=== PATIENT | male | born 1985 | race Hispanic/Latino ===

== ENCOUNTER 2020-02-19 07:33 | Inpatient (IN) | payer OTHER ==
[~2020-02-19] VITALS: Ht 177.8 cm; Wt 100.0 kg
[2020-02-19] MEDS ORDERED: MORPHINE 4 MG/ML 1ML VIAL/SYRINGE (J2270) IV ONE (08:15)
[2020-02-19] MEDS ORDERED: NS 1,000 ML IV ONE (08:15)
[2020-02-19] MEDS ORDERED: ONDANSETRON 4MG/2ML VIAL IV ONE (08:15)
[2020-02-19 08:35] LABS: BASO # 0.1 10^3/uL (0.0-0.2); BASO % 0.3 % (0.0-1.0); EOS % 0.1 % (0.0-3.0); HEMATOCRIT 41.2 % (42.0-52.0); HEMOGLOBIN 14.5 g/dl (13.5-17.5); LYMPH # 1.4 10^3/uL (1.5-5.0); LYMPH % 7.7 % (24.0-44.0); MEAN CORPUSCULAR HEMOGLOBIN 28.3 pg (27.0-33.0); MEAN CORPUSCULAR HGB CONC 35.2 g/dl (32.0-36.5); MEAN CORPUSCULAR VOLUME 80.3 fl (80.0-96.0); MONO # 0.9 10^3/uL (0.0-0.8); NEUTROPHILS # 15.3 10^3/uL (1.5-8.5); NEUTROPHILS % 86.4 % (36.0-66.0); PLATELET COUNT, AUTOMATED 241 10^3/uL (150-450); RED BLOOD COUNT 5.13 10^6/uL (4.30-6.10); WHITE BLOOD COUNT 17.7 10^3/uL (4.0-10.0)
[2020-02-19] MEDS ORDERED: ISOVUE-370 76% 100ML VIAL As Ordered ONE (08:41)
--- NOTE | 2020-02-19 09:30 | REP ---
INDICATION: rlq pain, r/o appy. COMPARISON: None. TECHNIQUE: Helical scanning was acquired and 4 mm axial images are re-formatted. Coronal and sagittal MPR images were generated and reviewed. The contrast enhancement dose is 100 mL of intravenous Isovue 370. FINDINGS: Digital preliminary coffee break attendant radiograph is noncontributory. The lung bases are clear on axial CT images. There is an accessory splenule in the left upper quadrant. There is also a small Bochdalek's hernia in the diaphragm transmiting a small quantity of abdominal fat into the left posterior hemithorax at the costovertebral angle. The liver is normal in size homogeneous in texture. The spleen is slightly prominent measuring 14 cm. There is at least 1 granulomatous calcification in the spleen. No mass lesion is observed. Normal adrenal glands are noted. There is no abnormality in the gallbladder or the pancreas. The kidneys enhance symmetrically and are morphologically intact. There are several normal-sized periaortic lymph nodes noted in the retroperitoneum. The largest of these 9 mm in short axis dimension by 17 x 30 mm in long axis dimension. These may be reactive lymph nodes. Scanning of the pelvis demonstrates a normal noninflamed air-containing appendix. There is however evidence of diverticulitis in the sigmoid colon with moderate amount of mural thickening and pericolonic fat streaking in the central pelvis above the dome of the urinary bladder. There is a intramural low-density fluid collection consistent with abscess measuring 1.7 cm in greatest diameter. No drainable abscess is seen. A 2nd intramural collection is seen measuring 1.3 cm. There is mild diverticulosis. No free air or remote abscess is seen. No abdominal wall defect is observed. Urinary bladder is intact. Seminal vesicles and prostate are unremarkable. Bone window settings show no bony destructive lesion. IMPRESSION: Acute diverticulitis sigmoid colon in the central pelvis with intramural fluid collections consistent with very small abscess formation. No free air or remote abscess seen. No drainable abscess noted. Normal appendix. Mild reactive retroperitoneal lymphadenopathy. Borderline enlarged spleen. Bochdalek's hernia noted incidentally transmiting abdominal fat into the left posterioromedial hemithorax. <Electronically signed by Joseph Becerra > 02/19/20 0952
[2020-02-19] MEDS ORDERED: PIPERACILLIN/TAZOBACTAM SOD 3.375 GM in D5W MINI-BAG PLUS 50 ML IV ONE (10:00)
[2020-02-19] MEDS ORDERED: ACETAMINOPHEN TAB 650MG DOSE (2X325MG) PO PRN ×2 (11:30→11:45)
[2020-02-19] MEDS ORDERED: lisinopriL 20 MG TAB PO ONE (11:45)
--- NOTE | 2020-02-19 11:53 | HPEPDOC ---
General Date of Admission 02/19/20 Date of Service: Feb 19, 2020 Chief Complaint The patient is a 34-year-old male admitted with a reason for visit of Abdominal Pain. Source: Patient Exam Limitations: No limitations Timing/Duration: Day(s) Severity: Moderate Associated Symptoms: Nausea History of Present Illness Patient is 34 years old male with past medical history of hypertension presented hospital with lower abdominal pain. Patient stated that for past 48 hours he has been having increased left lower quadrant and right lower quadrant abdominal pain with increased intensity, 7 out of 10. Also patient stated that he lost appetite and he has been having nausea. In ER patient was found to have leukocytosis of 17, hemoglobin 14.5, CT abdomen pelvis showed Acute diverticulitis sigmoid colon in the central pelvis with intramural fluid collections consistent with very small abscess formation. No free air or remote abscess seen. No drainable abscess noted. Surgical team was contacted by ER physician, Dr. Carey recommended antibiotic therapy for now. Home Medications No Active Prescriptions or Reported Meds Allergies Coded Allergies: No Known Allergies (Unverified , 02/19/20) Past Medical History Medical History Hypertension Family History Mother has diabetes and hypertension Social History * Smoker: chew Alcohol: occationally Drugs: denies A-FIB/CHADSVASC A-FIB History Current/History of A-Fib/PAF?: No Current PO Anticoag Therapy: No Review of Systems Constitutional: Denies: Chills, Fever Eyes: Denies: Pain ENT: Denies: Head Aches Skin: Denies: Rash, Lesions Pulmonary: Denies: Dyspnea, Cough Cardiovascular: Denies: Chest Pain Gastrointestinal: Reports: Nausea, Abdominal Pain Genitourinary: Denies: Dysuria, Frequency Hematologic: Denies: Bruising Musculoskeletal: Denies: Neck Pain Neurological: Denies: Weakness Psych: Reports: Mood Normal Physical Examination General Exam: Positive: Alert, Cooperative Eye Exam: Positive: PERRLA ENT Exam: Positive: Atraumatic Neck Exam: Positive: Supple; Negative: JVD Chest Exam: Positive: Clear to auscultation Heart Exam: Positive: Rate Normal Telemetry: Negative: No significant arrhythmia Abdomen Exam: Positive: BS Hypoactive, Soft, Tenderness Extremity Exam: Negative: Clubbing, Cyanosis Skin Exam: Positive: Nl turgor and temperature Neuro Exam: Positive: Normal Gait, Strength at 5/5 X4 ext Psych Exam: Positive: Mental status NL Vital Signs Vital Signs Date Time Temp Pulse Resp B/P (MAP) Pulse Ox O2 Delivery O2 Flow Rate FiO2 02/19/20 10:25 98.0 83 18 143/90 (107) 98 Room Air Laboratory Data Labs 24H Laboratory Tests 2 02/19/20 08:06: Immature Granulocyte % (Auto) 0.5, Neutrophils (%) (Auto) 86.4H, Lymphocytes (%) (Auto) 7.7L, Monocytes (%) (Auto) 5.0, Eosinophils (%) (Auto) 0.1, Basophils (%) (Auto) 0.3, Neutrophils # (Auto) 15.3H, Lymphocytes # (Auto) 1.4L, Monocytes # (Auto) 0.9H, Eosinophils # (Auto) 0.0, Basophils # (Auto) 0.1, Nucleated Red Blood Cells % (auto) 0.0 02/19/20 08:24: POC Glucose (Misc Panel) 119H, POC Sodium (Misc Panel) 137, POC Potassium (Misc Panel) 3.9, POC Chloride (Misc Panel) 101, POC Total CO2 (Misc Panel) 27.0, POC Blood Urea Nitrogen (Misc Panel 11, POC Ionized Calcium (Misc Panel) 4.9, POC Creatinine (Misc Panel) 0.9, POC Hematocrit (Misc Panel) 41.0 02/19/20 09:53: Coronavirus (COVID-19)(PCR) NEGATIVE CBC/BMP Laboratory Tests 02/19/20 08:06 Assessment/Plan Patient is 34 years old male with past medical history of hypertension presented hospital with lower abdominal pain. Patient stated that for past 48 hours he has been having increased left lower quadrant and right lower quadrant abdominal pain with increased intensity, 7 out of 10. Also patient stated that he lost appetite and he has been having nausea. In ER patient was found to have leukocytosis of 17, hemoglobin 14.5, CT abdomen pelvis showed Acute diverticulitis sigmoid colon in the central pelvis with intramural fluid collections consistent with very small abscess formation. No free air or remote abscess seen. No drainable abscess noted. Surgical team was contacted by ER physician, Dr. Carey recommended antibiotic therapy for now. Problems (1) Abscess of sigmoid colon due to diverticulitis Status: Acute Problem Text: CT showed intramural low-density fluid collection consistent with abscess measuring 1.7 cm in greatest diameter. No drainable abscess is seen. A 2nd intramural collection is seen measuring 1.3 Zosyn IV Appreciate agree with surgical consult (2) Sigmoid diverticulitis Status: Acute Problem Text: Nothing by mouth for now Pain management (3) Hypertension Status: Chronic Problem Text: Lisinopril by mouth 20 mg Plan / VTE VTE Prophylaxis Ordered?: Yes CHERI OTERO DO Feb 19, 2020 11:53
[2020-02-19 12:02] VITALS: BP 162/103
[2020-02-19] MEDS: HEPARIN SOD (PORCINE) 5000UNITS/ML 1ML VIAL/SYRINGE SC SCH ×2 (12:24→21:28)
[2020-02-19] MEDS: NS 1,000 ML IV SCH ×2 (12:24→20:04)
[2020-02-19] MEDS: KETOROLAC 30 MG/ML 1ML VIAL IV PRN (12:24)
[2020-02-19 16:00] VITALS: BP 144/88
[2020-02-19] MEDS: PIPERACILLIN/TAZOBACTAM SOD 3.375 GM in D5W MINI-BAG PLUS 50 ML IV SCH ×2 (17:49→21:28)
[2020-02-19 22:00] VITALS: BP 127/73
[2020-02-20] MEDS: PIPERACILLIN/TAZOBACTAM SOD 3.375 GM in D5W MINI-BAG PLUS 50 ML IV SCH ×4 (04:10→21:17)
[2020-02-20] MEDS: NS 1,000 ML IV SCH ×3 (04:11→20:37)
[2020-02-20 06:00] VITALS: BP 124/73
[2020-02-20 06:08] LABS: HEMATOCRIT 35.5 % (42.0-52.0); MEAN CORPUSCULAR HEMOGLOBIN 28.6 pg (27.0-33.0); MEAN CORPUSCULAR HGB CONC 34.9 g/dl (32.0-36.5); MEAN CORPUSCULAR VOLUME 81.8 fl (80.0-96.0); PLATELET COUNT, AUTOMATED 209 10^3/uL (150-450); RED BLOOD COUNT 4.34 10^6/uL (4.30-6.10); WHITE BLOOD COUNT 9.1 10^3/uL (4.0-10.0)
[2020-02-20 06:14] LABS: HEMOGLOBIN 12.4 g/dl (13.5-17.5)
[2020-02-20] MEDS: KETOROLAC 30 MG/ML 1ML VIAL IV PRN (06:18)
[2020-02-20 06:55] LABS: ALBUMIN 2.6 GM/DL (3.2-5.2); ALT/SGPT 31 U/L (12-78); BILIRUBIN,TOTAL 0.8 MG/DL (0.2-1.0); BLOOD UREA NITROGEN 13 MG/DL (7-18); CALCIUM LEVEL 8.7 MG/DL (8.5-10.1); CARBON DIOXIDE LEVEL 27 MEQ/L (21-32); CHLORIDE LEVEL 108 MEQ/L (98-107); CREATININE FOR GFR 0.97 MG/DL (0.70-1.30); GLOMERULAR FILTRATION RATE > 60.0 (>60); GLUCOSE, FASTING 90 MG/DL (70-100); MAGNESIUM LEVEL 2.1 MG/DL (1.8-2.4); POTASSIUM SERUM 3.4 MEQ/L (3.5-5.1); SODIUM LEVEL 139 MEQ/L (136-145); TOTAL PROTEIN 6.1 GM/DL (6.4-8.2)
[2020-02-20] MEDS: HEPARIN SOD (PORCINE) 5000UNITS/ML 1ML VIAL/SYRINGE SC SCH ×2 (09:10→21:18)
[2020-02-20] MEDS: lisinopriL 20 MG TAB PO SCH (09:10)
--- NOTE | 2020-02-20 11:58 | IPNPDOC ---
Text Note Date of Service The patient was seen on 02/20/20. NOTE Subjective: No any acute events overnight. Patient stated that his abdominal pain subsided Objective: GENERAL APPEARANCE: NAD HEENT: no scleral icterus, no JVD, EOMI CARDIOVASCULAR: S1S2 LUNGS: CTA ABDOMEN: soft & not tender w palpitation MUSCULOSKELETAL: no cyanosis, no swelling INTEGUMENT: no generalized palor NEUROLOGICAL: cranial nerve function from 2-12 intact intact, follows commands, speech not dysarthric Assessment/Plan Patient is 34 years old male with past medical history of hypertension presented hospital with lower abdominal pain. Patient stated that for past 48 hours he has been having increased left lower quadrant and right lower quadrant abdominal pain with increased intensity, 7 out of 10. Also patient stated that he lost appetite and he has been having nausea. In ER patient was found to have leukocytosis of 17, hemoglobin 14.5, CT abdomen pelvis showed Acute diverticulitis sigmoid colon in the central pelvis with intramural fluid c ollections consistent with very small abscess formation. No free air or remote abscess seen. No drainable abscess noted. Surgical team was contacted by ER physician, Dr. Morfin recommended antibiotic therapy for now. Problems (1) Abscess of sigmoid colon due to diverticulitis CT showed intramural low-density fluid collection consistent with abscess measuring 1.7 cm in greatest diameter. No drainable abscess is seen. A 2nd intramural collection is seen measuring 1.3 Zosyn IV (2) Sigmoid diverticulitis Nothing by mouth for now Pain management Patient will need colonoscopy in 4-6 weeks (3) Hypertension Blood pressure under control Lisinopril by mouth 20 mg VS,Fishbone, I+O VS, Fishbone, I+O Laboratory Tests 02/20/20 05:35 Vital Signs Date Time Temp Pulse Resp B/P (MAP) Pulse Ox O2 Delivery O2 Flow Rate FiO2 02/20/20 09:10 124/73 02/20/20 06:00 97.9 79 20 95 Room Air I&O- Last 24 Hours up to 6 AM 02/20/20 06:00 Intake Total 1600 ml Output Total 450 ml Balance 1150 ml CHERI OTERO DO Feb 20, 2020 11:58
[2020-02-20 13:09] LABS: BLOOD UREA NITROGEN 13 MG/DL (7-18); CALCIUM LEVEL 8.3 MG/DL (8.5-10.1); CARBON DIOXIDE LEVEL 27 MEQ/L (21-32); CHLORIDE LEVEL 109 MEQ/L (98-107); GLOMERULAR FILTRATION RATE > 60.0 (>60); GLUCOSE, FASTING 82 MG/DL (70-100); POTASSIUM SERUM 3.7 MEQ/L (3.5-5.1); SODIUM LEVEL 142 MEQ/L (136-145)
[2020-02-20 14:00] VITALS: BP 143/91
--- NOTE | 2020-02-20 14:24 | CR ---
DATE OF CONSULTATION: 02/20/2020 REASON FOR CONSULTATION: Diverticulitis. HISTORY OF PRESENT ILLNESS: The patient is a 34-year-old male who presented to the emergency room with lower abdominal pain in the right lower quadrant. He said this pain started on Wednesday and has been getting progressively worse throughout the week. He has had similar symptoms like this about a month ago that went away on its own. He attributed it to irritable bowel syndrome (IBS) and same thing this time. He thought he might have been a little bit constipated; but when the pain did not improve, he came to the emergency room. He had a white count of 17. He also had a CT scan done with concern for possible appendicitis that did show acute diverticulitis of the sigmoid colon with possible small abscesses. No signs of any free air or remote abscesses were identified. I was called from the emergency room and recommended admission with IV fluids and antibiotics. He was admitted overnight by the medical team. This morning, he feels much improved. He denies any fevers or chills. The abdominal pain is better. No problems with urination or bowel movements. No blood in his stool. No prior colonoscopy, no family history of colon diseases, and he has never had any abdominal surgeries. PAST MEDICAL HISTORY: Hypertension. PAST SURGICAL HISTORY: Negative. ALLERGIES: None. HOME MEDICATIONS: None. SOCIAL HISTORY: He denies drug, alcohol, or tobacco abuse. FAMILY HISTORY: Non-contributory. REVIEW OF SYSTEMS: Pertinent positives negative or as stated in the HPI. PHYSICAL EXAMINATION: GENERAL: Alert and oriented x3, in no acute distress. VITAL SIGNS: Temperature 97.9, pulse 79, respirations 20, blood pressure 124/73, pulse ox 95% on room air. HEENT: Pupils equally round, reactive to light and accommodation. HEART: S1, S2. Regular rate and rhythm. LUNGS: Clear to auscultation bilaterally. ABDOMEN: Soft. Tender to palpation suprapubic and into the right lower quadrant. Mild guarding. No rigidity. No signs of generalized peritonitis. No ventral hernias. EXTREMITIES: No clubbing, cyanosis, or edema. LABORATORY DATA: White count 17.7 on admission down to 9.1, hemoglobin 12.4, platelets 209,000. Potassium 3.4, creatinine 0.97. IMAGING: CT abdomen and pelvis done yesterday in the emergency room showed acute diverticulitis of the sigmoid colon with intramural fluid collections consistent with very small abscess formation. No free air or remote abscess seen. No drainable abscess identified. Normal appendix and mild reactive retroperitoneal lymphadenopathy. ASSESSMENT AND PLAN: The patient is a 34-year-old male with complicated diverticulitis. Recommendation at this time is to advance him to a clear liquid diet, keep on intravenous (IV) fluids and antibiotics until tomorrow. If tomorrow his pain is improved, he can be discharged home on a low-residue diet. I explained to him what diverticulosis and diverticulitis is. He understands and once his pain is zero, he will switch over to a high fiber diet. He will also follow-up with me as an outpatient within the next couple of weeks to set up for colonoscopy in about six to eight weeks to confirm the diagnosis of diverticulosis. ABBIE
[2020-02-20 18:31] LABS: BLOOD UREA NITROGEN 10 MG/DL (7-18); CALCIUM LEVEL 8.2 MG/DL (8.5-10.1); CARBON DIOXIDE LEVEL 26 MEQ/L (21-32); CHLORIDE LEVEL 111 MEQ/L (98-107); CREATININE FOR GFR 0.89 MG/DL (0.70-1.30); GLOMERULAR FILTRATION RATE > 60.0 (>60); GLUCOSE, FASTING 98 MG/DL (70-100); POTASSIUM SERUM 3.5 MEQ/L (3.5-5.1); SODIUM LEVEL 143 MEQ/L (136-145)
[2020-02-20 22:00] VITALS: BP 128/53
[2020-02-21 00:26] LABS: BLOOD UREA NITROGEN 8 MG/DL (7-18); CALCIUM LEVEL 8.5 MG/DL (8.5-10.1); CARBON DIOXIDE LEVEL 25 MEQ/L (21-32); CHLORIDE LEVEL 111 MEQ/L (98-107); CREATININE FOR GFR 0.87 MG/DL (0.70-1.30); GLOMERULAR FILTRATION RATE > 60.0 (>60); GLUCOSE, FASTING 90 MG/DL (70-100); POTASSIUM SERUM 3.6 MEQ/L (3.5-5.1); SODIUM LEVEL 142 MEQ/L (136-145)
[2020-02-21] MEDS: PIPERACILLIN/TAZOBACTAM SOD 3.375 GM in D5W MINI-BAG PLUS 50 ML IV SCH ×2 (04:19→09:55)
[2020-02-21] MEDS: NS 1,000 ML IV SCH (04:19)
[2020-02-21 06:00] VITALS: BP 129/83
[2020-02-21 06:15] LABS: HEMATOCRIT 35.8 % (42.0-52.0); HEMOGLOBIN 12.4 g/dl (13.5-17.5); MEAN CORPUSCULAR HGB CONC 34.6 g/dl (32.0-36.5); MEAN CORPUSCULAR VOLUME 80.8 fl (80.0-96.0); PLATELET COUNT, AUTOMATED 235 10^3/uL (150-450); RED BLOOD COUNT 4.43 10^6/uL (4.30-6.10); WHITE BLOOD COUNT 7.4 10^3/uL (4.0-10.0)
[2020-02-21 06:31] LABS: BLOOD UREA NITROGEN 7 MG/DL (7-18); CALCIUM LEVEL 8.5 MG/DL (8.5-10.1); CARBON DIOXIDE LEVEL 25 MEQ/L (21-32); CHLORIDE LEVEL 110 MEQ/L (98-107); CREATININE FOR GFR 0.84 MG/DL (0.70-1.30); GLOMERULAR FILTRATION RATE > 60.0 (>60); GLUCOSE, FASTING 95 MG/DL (70-100); MAGNESIUM LEVEL 2.1 MG/DL (1.8-2.4); POTASSIUM SERUM 3.5 MEQ/L (3.5-5.1); SODIUM LEVEL 141 MEQ/L (136-145)
--- NOTE | 2020-02-21 07:45 | IPNPDOC ---
Text Note Date of Service The patient was seen on 02/21/20. NOTE No acute events overnight. His pain is still present, but it is improved. No fevers, nausea, or emesis. He had a BM overnight with a little blood in it and that made his pain worse temporarily, but then it improved again. No other concerns. VSSAF NAD abd - soft, TTP suprapubic only, no rebound or guarding, pain is improved from yesterday labs - below A) 34 y/o male with acute complicated diverticulitis P) low residue diet PO abx d/c home f/u in office in 2 weeks. Magdy Morfin DO VS,Angela, I+O VS, Angela, I+O Laboratory Tests 02/20/20 12:10 02/20/20 17:53 02/20/20 23:53 02/21/20 05:32 Vital Signs Date Time Temp Pulse Resp B/P (MAP) Pulse Ox O2 Delivery O2 Flow Rate FiO2 02/21/20 06:00 98.2 69 18 129/83 (98) 95 Room Air I&O- Last 24 Hours up to 6 AM 02/21/20 06:00 Intake Total 6847 ml Output Total 2250 ml Balance 4597 ml BRIAN MORFIN DO Feb 21, 2020 07:45
[2020-02-21] MEDS ORDERED: POTASSIUM CHLORIDE 10 MEQ SR TABLET PO ONE (08:00)
[2020-02-21 08:09] VITALS: BP 142/90
[2020-02-21] MEDS: HEPARIN SOD (PORCINE) 5000UNITS/ML 1ML VIAL/SYRINGE SC SCH (08:09)
[2020-02-21] MEDS: lisinopriL 20 MG TAB PO SCH (08:09)
[2020-02-21] MEDS ORDERED: CIPR500T3 PO (10:59)
[2020-02-21] MEDS ORDERED: METR-135 PO (10:59)
[2020-02-21] MEDS ORDERED: LISI-538 PO (10:59)
[2020-02-21 12:13] LABS: BLOOD UREA NITROGEN 6 MG/DL (7-18); CALCIUM LEVEL 8.8 MG/DL (8.5-10.1); CARBON DIOXIDE LEVEL 25 MEQ/L (21-32); CHLORIDE LEVEL 111 MEQ/L (98-107); GLOMERULAR FILTRATION RATE > 60.0 (>60); GLUCOSE, FASTING 101 MG/DL (70-100); POTASSIUM SERUM 3.7 MEQ/L (3.5-5.1); SODIUM LEVEL 143 MEQ/L (136-145)
--- NOTE | 2020-02-21 16:04 | DS.PDOC ---
Discharge Summary General Date of Admission Feb 19, 2020 at 11:25 Date of Discharge 02/21/20 Discharge Summary PROCEDURES PERFORMED DURING STAY: [None]. ADMITTING DIAGNOSES: Abscess of sigmoid colon due to diverticulitis Sigmoid diverticulitis DISCHARGE DIAGNOSES: Abscess of sigmoid colon due to diverticulitis Sigmoid diverticulitis COMPLICATIONS/CHIEF COMPLAINT: Abscess Of Sigmoid Colon Due To Diverticulitis. HISTORY OF PRESENT ILLNESS: Patient is 34 years old male with past medical history of hypertension presented hospital with lower abdominal pain. Patient stated that for past 48 hours he has been having increased left lower quadrant and right lower quadrant abdominal pain with increased intensity, 7 out of 10. Also patient stated that he lost appetite and he has been having nausea. In ER patient was found to have leukocytosis of 17, hemoglobin 14.5, CT abdomen pelvis showed Acute diverticulitis sigmoid colon in the central pelvis with intramural fluid collections consistent with very small abscess formation. No free air or remote abscess seen. No drainable abscess noted. Surgical team was contacted by ER physician, Dr. Morfin recommended antibiotic therapy for now. HOSPITAL COURSE: The following issue addressed Abscess of sigmoid colon due to diverticulitis CT showed intramural low-density fluid collection consistent with abscess measuring 1.7 cm in greatest diameter. No drainable abscess is seen. A 2nd intramural collection is seen measuring 1.3 Patient received treatment with Zosyn IV (2) Sigmoid diverticulitis Pain management Patient will need colonoscopy in 4-6 weeks (3) Hypertension Blood pressure under control Lisinopril by mouth 20 mg DISCHARGE MEDICATIONS: Please see below. ALLERGIES: Please see below. PHYSICAL EXAMINATION ON DISCHARGE: VITAL SIGNS: Please see below. GENERAL APPEARANCE: NAD HEENT: no scleral icterus, no JVD, EOMI CARDIOVASCULAR: S1S2 LUNGS: CTA ABDOMEN: soft & not tender w palpitation MUSCULOSKELETAL: no cyanosis, no swelling INTEGUMENT: no generalized palor NEUROLOGICAL: cranial nerve function from 2-12 intact intact, follows commands, speech not dysarthric LABORATORY DATA: Please see below. IMAGING: [facility] NAME: BARRY KIMBLE DATE OF : 1985 AGE: 34 SEX: M REPORT #: [id number] ROOM: ED TECHNOLOGIST: DESTINY DOCTOR: EDMOND STYLES PA-C. Ordered for Date&Time: 02/19/20 0806 cc: [~ rep ct ivnm] Service Date&Time: This report is in Signed status. If this report is in a DRAFT status it has not yet been reviewed by the radiologist for accuracy. Thank you for having your radiology procedures performed at [facility] RADIOLOGY REPORT Date&Time printed: [~ rep prt dt last] [~ rep prt tm last] Page 2 of [address] [id number] RADIOLOGY REPORT This report is in Signed status. If this report is in a DRAFT status it has not yet been reviewed by the radiologist for accuracy. Thank you for having your radiology procedures performed at [facility] RADIOLOGY REPORT Date&Time printed: [~ rep prt dt last] [~ rep prt tm last] Page 1 of 1 COMPARISON: None. TECHNIQUE: Helical scanning was acquired and 4 mm axial images are re-formatted. Coronal and sagittal MPR images were generated and reviewed. The contrast enhancement dose is 100 mL of intravenous Isovue 370. FINDINGS: Digital preliminary foster care therapist radiograph is noncontributory. The lung bases are clear on axial CT images. There is an accessory splenule in the left upper quadrant. There is also a small Bochdalek's hernia in the diaphragm transmiting a small quantity of abdominal fat into the left posterior hemithorax at the costovertebral angle. The liver is normal in size homogeneous in texture. The spleen is slightly prominent measuring 14 cm. There is at least 1 granulomatous calcification in the spleen. No mass lesion is observed. Normal adrenal glands are noted. There is no abnormality in the gallbladder or the pancreas. The kidneys enhance symmetrically and are morphologically intact. There are several normal-sized periaortic lymph nodes noted in the retroperitoneum. The largest of these 9 mm in short axis dimension by 17 x 30 mm in long axis dimension. These may be reactive lymph nodes. Scanning of the pelvis demonstrates a normal noninflamed air-containing appendix. There is however evidence of diverticulitis in the sigmoid colon with moderate amount of mural thickening and pericolonic fat streaking in the central pelvis above the dome of the urinary bladder. There is a intramural low-density fluid collection consistent with abscess measuring 1.7 cm in greatest diameter. No drainable abscess is seen. A 2nd intramural collection is seen measuring 1.3 cm. There is mild diverticulosis. No free air or remote abscess is seen. No abdominal wall defect is observed. Urinary bladder is intact. Seminal vesicles and prostate are unremarkable. Bone window settings show no bony destructive lesion. IMPRESSION: Acute diverticulitis sigmoid colon in the central pelvis with intramural fluid collections consistent with very small abscess formation. No free air or remote abscess seen. No drainable abscess noted. Normal appendix. Mild reactive retroperitoneal lymphadenopathy. Borderline enlarged spleen. Bochdalek's hernia noted incidentally transmiting abdominal fat into the left posterioromedial hemithorax. <Electronically signed by Joseph Becerra > 02/19/20925 DD: Ortiz Becerra MD 02/19/20917 DT: KASSANDRA 02/19/20925 DS: AJIT 02/19/2091702/19/20917 [~ rep ct labl] PROGNOSIS: Fair ACTIVITY: [As tolerated]. DIET: Regular DISPOSITION: 01 Home, Self-Care. ITEMS TO FOLLOWUP ON ON OUTPATIENT: Follow-up with Dr. Morfin in 2 weeks DISCHARGE CONDITION: [Stable]. TIME SPENT ON DISCHARGE: Greater than 20 minutes. Vital Signs/I&Os Vital Signs Date Time Temp Pulse Resp B/P (MAP) Pulse Ox O2 Delivery O2 Flow Rate FiO2 02/21/20 08:09 142/90 02/21/20 06:00 98.2 69 18 95 Room Air I&O- Last 24 Hours up to 6 AM 02/21/20 06:00 Intake Total 6847 ml Output Total 2250 ml Balance 4597 ml Laboratory Data Labs 24H Laboratory Tests 2 02/20/20 17:53: Anion Gap 6L, Glomerular Filtration Rate > 60.0, Calcium Level 8.2L 02/20/20 23:53: Anion Gap 6L, Glomerular Filtration Rate > 60.0, Calcium Level 8.5 02/21/20 05:32: Anion Gap 6L, Glomerular Filtration Rate > 60.0, Calcium Level 8.5, Nucleated Re d Blood Cells % (auto) 0.0, Magnesium Level 2.1 02/21/20 11:31: Anion Gap 7L, Glomerular Filtration Rate > 60.0, Calcium Level 8.8 CBC/BMP Laboratory Tests 02/20/20 17:53 02/20/20 23:53 02/21/20 05:32 02/21/20 11:31 Discharge Medications Scheduled Ciprofloxacin HCl (Ciprofloxacin HCl) 500 Mg Tablet, 1 TAB PO BID Lisinopril (Lisinopril) 20 Mg Tablet, 20 MG PO DAILY Metronidazole (Metronidazole) 250 Mg Tablet, 250 MG PO TID Allergies Coded Allergies: No Known Allergies (Unverified , 02/19/20) CHERI OTERO DO Feb 21, 2020 16:04
== END 2020-02-21 14:09 | disposition home or self-care (01) | DRG 392 ==
LOC: M ED 07:33 → EDBD 07:33 → M ED INP 11:25 → ENRESERV 11:36 → M MSPAV 12:08
PROVIDERS: ADMIT Internal Medicine; ATTEND Internal Medicine
DX: K57.20 Diverticulitis of large intestine with perforation and abscess without bleeding (principal); I10 Essential (primary) hypertension